=== PATIENT | male | born 1940 | race Caucasian/White ===

== ENCOUNTER 2017-10-08 05:29 | Day surgery (SDC) | payer BC ==
[2017-10-08] VITALS (9 sets, daily range): BP systolic 122–162; BP diastolic 59–83; PULSE 47–57; TEMP 97.4–98
[~2017-10-08] VITALS: Ht 180.3 cm; Wt 76.4 kg
[~2017-10-08 05:29] MED LIST: ACCURETIC 12.51 TA1 PO; GLUCOPHAGE1000 MG PO; TOPROL XL100 MG PO
[2017-10-08] MEDS ORDERED: MULTIPLE VITAMI1 TA5 PO (05:51)
[2017-10-08] MEDS ORDERED: PRAVACHOL 40MG40 MG PO (05:51)
[2017-10-08] MEDS ORDERED: ACCURETIC 12.51 TA1 PO (05:52)
[2017-10-08] MEDS ORDERED: ASPIRIN 81M81 MG/TA2 PO (05:52)
[2017-10-08] MEDS ORDERED: NORCO 325 MG-51 TAB PO (10:02)
== END 2017-10-08 15:08 | disposition home or self-care (01) ==
LOC: SDCO 05:29
DX: K40.21 Bilateral inguinal hernia, without obstruction or gangrene, recurrent (principal); I10 Essential (primary) hypertension; E78.2 Mixed hyperlipidemia; M19.90 Unspecified osteoarthritis, unspecified site; Z79.82 Long term (current) use of aspirin; Z79.84 Long term (current) use of oral hypoglycemic drugs; E11.9 Type 2 diabetes mellitus without complications; Z85.51 Personal history of malignant neoplasm of bladder; Z80.1 Family history of malignant neoplasm of trachea, bronchus and lung; Z80.3 Family history of malignant neoplasm of breast; Z80.6 Family history of leukemia; Z80.8 Family history of malignant neoplasm of other organs or systems
CPT/HCPCS: C1781; J0690; J1100; J1885; J2405; J2704; J2710; J3010; J7120

== ENCOUNTER 2021-02-07 11:33 | Day surgery (SDC) | payer BC ==
[2021-02-07] VITALS (11 sets, daily range): BP systolic 120–167; BP diastolic 62–71; PULSE 54–71; TEMP 98–98.8
[~2021-02-07] VITALS: Ht 180.3 cm; Wt 72.4 kg
[~2021-02-07 11:33] MED LIST changes: +ASPIRIN 81M81 MG/TA2 PO; +MULTIPLE VITAMI1 TA5 PO; +NORCO 325 MG-51 TAB PO; +PRAVACHOL 40MG40 MG PO
[2021-02-07] MEDS ORDERED: ACCUPRIL40MGTAB PO (13:54)
[2021-02-07] MEDS ORDERED: HCTZ 25MG TAB25 MG PO (13:55)
[2021-02-07] MEDS ORDERED: XALATAN EYE DROPS OU (13:56)
[2021-02-07] MEDS ORDERED: MASON NATURAL1000 MG PO (13:57)
[2021-02-07] MEDS ORDERED: B-12 500 MCG PO (13:57)
--- NOTE | 2021-02-07 16:10 | NUR ---
PT TO ROOM 348 PER BED WITH REPORT FROM JORDAN DELEON PACU @4395. PT IS A\O X3 WITH LUNGS CTA, BOWEL SOUNDS PRESENT. [address] WAY HOLT TO DD WITH CBI RUNNING AT A MODERATE RATE. URINE IN BAG REDDISH. PT DENIES NEEDS. PT'S AT BEDSIDE.
--- NOTE | 2021-02-07 20:45 | NUR ---
PT ATE ALL OF SUPPER. DENIES PAIN. HAS CBI AT MODERATE RATE, URINE PINK. IVF INFUSING TO LEFT FOREARM WITHOUT REDNESS OR SWELLING. WILL INT AFTER COMPLETE. HOLT CARES GIVEN.
[2021-02-08 00:42] VITALS: BP 115/61; PULSE 59; TEMP 98
[2021-02-08 04:34] VITALS: BP 119/55; PULSE 60; TEMP 98.1
--- NOTE | 2021-02-08 06:00 | NUR ---
PT URINE YELLOW/PINK, CBI AT SLOW RATE. PT DENIES NEEDS AT THIS TIME.
[2021-02-08 08:02] VITALS: BP 125/56; PULSE 66; TEMP 98.6
--- NOTE | 2021-02-08 08:10 | NUR ---
Barber catheter prime and pull completed at this time. Six bottle routine initiated. Tolerated well.
--- NOTE | 2021-02-08 09:52 | NUR ---
Patient alert and oriented, answers questions appropriately. See assessment. Barber catheter dc'd this a.m. per Drs order. Voiding small amounts, continues with six bottle routine. C/o urinary pain, no burning or frequency. No c/o at this time.
--- NOTE | 2021-02-08 11:13 | NUR ---
Discharge instructions reviewed with patient, verbalized understanding. Discharged ambulatory to auto/home with family at 1110.
== END 2021-02-08 11:10 | disposition home or self-care (01) ==
LOC: SDCO 11:33 → SURG 16:03 → SDCO 02-08 11:10
DX: C67.9 Malignant neoplasm of bladder, unspecified (principal); M19.90 Unspecified osteoarthritis, unspecified site; E11.9 Type 2 diabetes mellitus without complications; I10 Essential (primary) hypertension; Z90.89 Acquired absence of other organs; Z79.84 Long term (current) use of oral hypoglycemic drugs; Z79.899 Other long term (current) drug therapy
CPT/HCPCS: OP; J0690; J1100; J2405; J2704; J3010; J3480; J7120

== ENCOUNTER 2021-06-27 10:53 | Day surgery (SDC) | payer BC ==
[~2021-06-27] VITALS: Ht 180.3 cm; Wt 72.9 kg
[2021-06-27] VITALS (8 sets, daily range): BP systolic 106–169; BP diastolic 61–86; PULSE 54–69; TEMP 98.2
[~2021-06-27 10:53] MED LIST changes: +ACCUPRIL40MGTAB PO; +B-12 500 MCG PO; +HCTZ 25MG TAB25 MG PO; +MASON NATURAL1000 MG PO; +XALATAN EYE DROPS OU
--- NOTE | 2021-06-27 16:38 | NUR ---
Patient received post op. Alert & oriented. at bedside. Vss on O2. Scds ble. Barber to DD with pink tinged output. Cbi to a moderate rate. Iv to INt. Ice water provided. Will monitor.
--- NOTE | 2021-06-27 17:19 | NUR ---
Patient resting in bed. Vitals remains stable on 2 L. Cbi to a slow rate, pink output. Will monitor.
--- NOTE | 2021-06-27 18:39 | NUR ---
Patient sitting up in bed. eating dinner tray. denies needs. Bedside [facility]
--- NOTE | 2021-06-27 19:30 | NUR ---
Pt. sitting up in bed watching TV. Pt. is A&OX3, assessment complete. INT to rt. wrist patent. Three way oliveira with CBI running at a moderate rate, urine is red tinged with some sediment noted. Pt. denies pain or other needs at this time. Call light within reach.
[2021-06-28 00:43] VITALS: BP 120/59; PULSE 58; TEMP 98.3
[2021-06-28 04:30] VITALS: BP 143/56; PULSE 78; TEMP 98.3
--- NOTE | 2021-06-28 06:45 | NUR ---
Report received, assumed care for days shift.
[2021-06-28 07:01] VITALS: BP 139/63; PULSE 64; TEMP 97.5
--- NOTE | 2021-06-28 07:26 | NUR ---
Patient was sitting up in bed. Alert and oriented x3. INT Rt forearm clean, dry, and intact. CBI is running. Urine is a light pink. Pt denies any pain at this time. Call light within reach. Aislinn DESAI student.
--- NOTE | 2021-06-28 07:40 | NUR ---
Primed and pulled at this time. Instilled 250mls of NS. 25mls NS removed from baloon. Instruction given on six cup collection. Verbalizes understanding. Instructed to call for assistance to bathroom for first time-has not been up out of bed as of yet.
--- NOTE | 2021-06-28 09:03 | NUR ---
Mineral Mixer met with patient to discuss discharge planning. Patient lives in [place] with his , Liliane (ph#[phone]) and sees Dr. Fontana for primary care. Patient obtains medications from [facility] with no difficulties and does not use any DME. Patient is independent with ADLS and plans to return home at time of discharge. Patient stated his is his DPOA-HC. Discharge Plan: Home
--- NOTE | 2021-06-28 10:42 | NUR ---
Pt states he feels as if he needs to urinate more than what is coming out. Patient than states that he cant tell if he is constipated and that is what is causing the discomfort or if its the inability to empty bladder. Bladder scanned at this time-300mls. States he feels constipated-MOM given per dr order. Encouraged to get up and ambulate in hallways. Verbaclizes understanding. Call light in reach. Will monitor.
--- NOTE | 2021-06-28 10:57 | NUR ---
Up ambulating in hallways.
--- NOTE | 2021-06-28 11:07 | NUR ---
Pt has been up independently ambulating. He has stated he is ready for discharge. Pt is still voiding for the six bottle routine. He has just voided in the sixth cup. Resting in bed. Reported off to Pily DELEON. Aislinn DESAI Student.
--- NOTE | 2021-06-28 14:00 | NUR ---
Dr Clemente notified of inability to void since 6 cup. Had a total out of 240mls. Has been bladder scanned x2 over this AM for c/o feeling the need to void. First scan with 180ml-second scan 240mls. Does appear to be distended. Will notify Dr Clemente.
--- NOTE | 2021-06-28 14:20 | NUR ---
Straight cathd at this time with no return but obvious distention/clots in tubing. Irrigated with NS with immediate return of many large clots. Up to bathroom at this time and voided 100mls burgundy output with several smaller clots.
--- NOTE | 2021-06-28 14:45 | NUR ---
Notified Dr Clemente of need to irrigate due to not voiding. Orders received to push PO fluids and re-evaluate in case need for insertion of 3 way. Instructed patient to increase PO. Verbalizes understanding. Call light in reach. Will monitor.
[2021-06-28 15:45] VITALS: BP 138/56; PULSE 51; TEMP 97.7
--- NOTE | 2021-06-28 16:23 | NUR ---
Patient states this is the first time he has not felt as if he is distended and unable to void. Has not voided since straight cath but has increased PO intake per instruction. Will continue to monitor.
--- NOTE | 2021-06-28 19:00 | NUR ---
PT ABLE TO VOID 75CC OF TEA COLORED URINE. IS DRINKING FLUIDS, DOES NOT WANT THE CATHETER PLACED.
[2021-06-28 20:15] VITALS: BP 144/60; PULSE 108; TEMP 98.1
--- NOTE | 2021-06-28 20:30 | NUR ---
PT ABLE TO VOID 125CC OF LIGHT TEA COLORED URINE. UP INDEPENDENTLY IN ROOM. INT TO RT WRIST, FLUSHES WELL. DENIES PAIN.
--- NOTE | 2021-06-29 00:30 | NUR ---
PT VOIDS 200CC OF LIGHT TEA COLORED URINE. PT DENIES DISCOMFORT AND DOESN'T FEEL LIKE HIS BLADDER IS OVERLY FULL.
[2021-06-29 00:44] VITALS: BP 124/63; PULSE 62; TEMP 97.8
--- NOTE | 2021-06-29 04:00 | NUR ---
PT VOIDS 700CC OF LIGHT TEA URINE.
[2021-06-29 05:08] VITALS: BP 131/56; PULSE 66; TEMP 98.1
--- NOTE | 2021-06-29 06:35 | NUR ---
awake resting in bed, bedside shift report received from PANCHO Ca, he states he has been up and voiding every 15 minutes but stream is good, informed him to start calling everytime he is up to bathroom so this can be monitored
--- NOTE | 2021-06-29 07:15 | NUR ---
resting in bed, has ordered breakfast, full assessment completed, see interventions for further info
--- NOTE | 2021-06-29 07:36 | NUR ---
LUIS Sterling from urology in to see patient, will plan discharge later today
[2021-06-29 08:16] VITALS: BP 119/70; PULSE 74; TEMP 98.3
--- NOTE | 2021-06-29 09:07 | NUR ---
resting in bed visiting with his , is ready for discharge when paperwork done
--- NOTE | 2021-06-29 09:25 | NUR ---
Initial visit; Patient doing well and thanked Jump Iron Machine Presser for looking in on him, keeping him in her prayers and offering Gods blessings.
--- NOTE | 2021-06-29 09:42 | NUR ---
Int discontinued, discharge instructions given to pateint and his , verbalizes understanding,
--- NOTE | 2021-06-29 09:50 | NUR ---
discharged ambulatory
== END 2021-06-29 09:50 | disposition home or self-care (01) ==
LOC: SDCO 10:53 → SURG 16:03 → SDCO 06-29 09:50
DX: C67.9 Malignant neoplasm of bladder, unspecified (principal)
CPT/HCPCS: OP; J0690; J1100; J1170; J2405; J2704; J3010; J7120

== ENCOUNTER 2021-07-20 10:57 | Day surgery (SDC) | payer BC ==
[2021-07-20] VITALS (9 sets, daily range): BP systolic 134–174; BP diastolic 57–89; PULSE 57–70; TEMP 97.5–98.3
[~2021-07-20] VITALS: Ht 180.3 cm; Wt 71.7 kg
[2021-07-20] MEDS ORDERED: FLOMAX 0.40.4 MG/CAP PO (11:39)
--- NOTE | 2021-07-20 11:45 | NUR ---
0935: Patient arrived back into bay 1 from OR. Alert and awake. Requesting coffee and pudding. Son in law at bedside. 0950: Patient vitally stable. Tolerating food and drink. 1005: Patient tolerating food and drink. Denies pain or nausea. 1020: PANCHO Jones. Went through discharge instructions with patient. Questions answered. Son in law went to pull up care. Patient got dressed independently in room and went to restroom. Escorted to patient entrance via wheelchair.
--- NOTE | 2021-07-20 14:50 | NUR ---
Patient arrived to room 346 from OR at this time, S/p TURBT, alert/oriented, vital signs stable, denies pain, tolerting PO intake, will continue to monitor
--- NOTE | 2021-07-20 15:07 | NUR ---
Assessment completed, arrived to room 342 s/p TURBT, alert/oriented, vital signs stable, denies pain or discomfort, tolerating PO intake well, will continue to monitor
--- NOTE | 2021-07-20 18:11 | NUR ---
Patient continues to do well post op, vitals stable, denies pain or discomfort, CBI running slowly and output is pale/light pink with some very small clots at times, tolerating general diet, denies other needs
--- NOTE | 2021-07-21 00:38 | NUR ---
Received report from day shift. Patient alert and oriented x4. Patient here for TURBT. Patient denies pain at this time. Assessment performed. PM meds administered. Patient resting in bed with call light near.
[2021-07-21 04:07] VITALS: BP 134/56; PULSE 73; TEMP 97.8
[2021-07-21 08:00] VITALS: BP 141/73; PULSE 77; TEMP 97.7
--- NOTE | 2021-07-21 08:56 | NUR ---
PATIENT ALERT AND ORIENTED X3. CBI GOING WITH HOLT CATHETER. URINE IS PINK COLORED. TOOK MORNING MEDICATIONS WELL. ON ROOM AIR. NO NEW CONCERNS.
[2021-07-21 12:00] VITALS: BP 145/67; PULSE 73; TEMP 97.8
--- NOTE | 2021-07-21 12:45 | NUR ---
stopped by but nothing needed at this time.
--- NOTE | 2021-07-21 13:38 | NUR ---
wafer production lead worker met with patient to discuss discharge plan. Patient states that he lives at home with his Leah ([phone]) in [place]. Patient is independent with his ADL's and does not utilize any DME to assist with mobility. Patient has no home oxygen needs. PCP is and he utilizes [facility] for medications with no cost difficulty. 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 Patient is planning on returning home once medically ready. Discharge plan: Home
== END 2021-07-21 13:28 | disposition home or self-care (01) ==
LOC: SDCO 10:57 → SURG 14:42 → SDCO 07-21 13:28
DX: D09.0 Carcinoma in situ of bladder (principal); E11.9 Type 2 diabetes mellitus without complications; Z79.84 Long term (current) use of oral hypoglycemic drugs
CPT/HCPCS: OP; J0690; J2405; J2704; J3010; J7120

== ENCOUNTER 2021-08-31 06:28 | Day surgery (SDC) | payer BC ==
[~2021-08-31] VITALS: Ht 180.3 cm; Wt 70.6 kg
[2021-08-31] VITALS (11 sets, daily range): BP systolic 111–157; BP diastolic 53–67; PULSE 41–77; TEMP 97.4–97.8
[~2021-08-31 06:28] MED LIST changes: +FLOMAX 0.40.4 MG/CAP PO
--- NOTE | 2021-08-31 10:10 | NUR ---
PATIENT ADMITED INTO ROOM 327 POST OP. ORIENTED BUT DROWSY. VSS. DENIES PAIN. HOLT TO DD WITH CBI INFUSING AT MOD RATE. URINE IS PINK, NO CLOTS NOTED. IV FLUIDS INFUSING INTO LEFT WRIST. NO C/O N/V. LIQUIDS AT BEDSIDE. BS IN PACU WAS 108. HEAD TO TOE ASSESSMENT COMPLETE. AT BEDSIDE. ORIENTED TO ROOM. CALL LIGHT IN REACH.
--- NOTE | 2021-08-31 20:07 | NUR ---
PT LAYING IN BED WITH VISITING. CBI AND IV FLUIDS INFUSING WELL.
[2021-09-01 00:51] VITALS: BP 142/70; PULSE 67; TEMP 97.8
[2021-09-01 04:13] VITALS: BP 127/71; PULSE 84; TEMP 99.1
[2021-09-01 07:45] VITALS: BP 155/66; PULSE 67; TEMP 98.4
--- NOTE | 2021-09-01 11:15 | NUR ---
PT IN BED WITH HOB ELEVATED, HAS DENIED PAIN OR DISCOMFORT THIS AM WHEN ASKED. PT DOES REPORT THAT HE HAD AN EPISODE OF PAIN DURING NIGHT THAT HAS SINCE RESOLVED. CBI RUNNING SLOW, DRAINAGE IS CLEAR ET PINK. PT ENCOURAGED TO DRINK WATER, VERBALIZES UNDERSTANDING.
[2021-09-01 12:00] VITALS: BP 124/66; PULSE 65; TEMP 98.3
--- NOTE | 2021-09-01 13:28 | NUR ---
DR. JOINER CALLED ET UPDATED ON PT STATUS. NEW ORDER RECEIVED TO STOP CBI. CBI IS STOPPED, HAS BEEN PINK ET CLEAR, WAS RUNNING SLOWLY. PT UPDATED ON PLAN, VERBALIZES UNDERSTANDING.
--- NOTE | 2021-09-01 14:36 | NUR ---
ANUPAM met with pt to complete intake. Pt lives at home with his , Liliane [phone]. Pt reports he is independent on all ADLs, drives and does not use any DMEs. PCP is Dr. Villa and uses a [facility] for pharmacy and has no trouble obtaining cost. Pt reports he has a DPOA-HC. No other needs stated at this time. DC: home with .
[2021-09-01 15:53] VITALS: BP 130/58; PULSE 70; TEMP 98.3
--- NOTE | 2021-09-01 18:17 | NUR ---
PT ASSISTED WITH SBA TO CHAIR TO EAT DINNER, TOLERATES WELL. URINE IN HOLT TUBING BECOMES DARK RED WITH MOVEMENT THEN BECOMES CLEARER REDDISH KATHRYN WITH OCCASIONAL PIECES OF TISSUE SEEN AFTER SEVERAL MINUTES. PT DENIES ANY PAIN. BED LINENS CHANGED ET PT GIVEN BED BATH WIPES TO USE ET A CLEAN GOWN. PT DENIES NEEDS. CALL LIGHT WITHIN REACH.
--- NOTE | 2021-09-01 19:10 | NUR ---
PY SITTING IN CHAIR RESTING. PT DENIES PAIN AT THIS TIME.
[2021-09-01 19:58] VITALS: BP 125/55; PULSE 70; TEMP 98.4
[2021-09-02 00:40] VITALS: BP 111/52; PULSE 81; TEMP 98.1
[2021-09-02 04:44] VITALS: BP 110/50; PULSE 65; TEMP 98.6
[2021-09-02 07:14] VITALS: BP 95/52; PULSE 65; TEMP 98.2
[2021-09-02 12:00] VITALS: BP 120/60; PULSE 62; TEMP 98.3
--- NOTE | 2021-09-02 14:48 | NUR ---
DISCHARGE INSTRUCTION PROVIDED. FOLLOW UP DISCUSSED. IV DC'D. PATIENT DENIED QUESTIONS OR CONCERNS. PATIENT ESCORTED OUT.
== END 2021-09-02 14:20 | disposition home or self-care (01) ==
LOC: SDCO 06:28 → SURG 10:10 → SDCO 09-02 14:20
DX: C67.9 Malignant neoplasm of bladder, unspecified (principal); N40.1 Benign prostatic hyperplasia with lower urinary tract symptoms; N13.8 Other obstructive and reflux uropathy
CPT/HCPCS: OP; J0690; J2250; J2704; J3480; J7120